=== PATIENT | female | born 2000 | race Caucasian/White ===

== ENCOUNTER → 2021-11-05 | Outpatient (CLI) | payer OTHER ==
--- NOTE | 2021-11-05 17:50 | KCIC ---
Exam Date: 11/05/2021 12:27 PM US PELVIS COMPLETE Indication: Reason: DYSMENORRHEA, PELVIC AND PERINEAL PAIN / Spl. Instructions: / History: . TECHNIQUE: Multiple longitudinal and transverse sonographic images were obtained of the pelvis using a transabdominal and transvaginal approach. Color Doppler imaging was performed on the ovaries bila terally. Transvaginal imaging was included to better evaluate the uterus, ovaries, and adnexa. FINDINGS: The uterus measures 7.5 x 4.7 x 2.7 cm. The endometrial complex measures 4 mm in thickness. There is a large septated complex right adnexal mass with vascularity measuring 12.2 x 6.5 x 7.0 cm. Presumably this represents the right ovary, though no definite normal-appearing right ovarian tissue is seen. The left ovary measures 3.3 x 2.9 x 1.9 cm. And appears normal Color Doppler imaging demonstrates nor mal vascularity in the left ovary. No pelvic free fluid or mass is seen. IMPRESSION: Large complex right adnexal mass, suspected to be an ovarian mass. Further evaluation with MRI pelvi s with and without contrast is recommended. Electronically signed by: Hayden Santos MD (11/05/2021 5:48 PM) [id number]
== END ==
LOC: KCIC US 12:24
PROVIDERS: ATTEND Nurse Practitioner Family
DX: R19.09 Other intra-abdominal and pelvic swelling, mass and lump (principal); N94.6 Dysmenorrhea, unspecified
CPT/HCPCS: 76856